=== PATIENT | male | born 1945 | race Caucasian/White ===

== ENCOUNTER 2023-12-22 10:58 | Emergency (ER) | payer MEDICARE, SELFPAY ==
[2023-12-22 11:00] VITALS: BP 153/99; PULSE 73; RESP 18; TEMP 36.4; O2SAT 97
[2023-12-22 11:21] VITALS: BMI 20.7
[2023-12-22] MEDS: Lidocaine Jelly 2% 20 ML Syringe (URO-JET) 1 APPLIC TOPICAL (12:04)
[2023-12-22 12:30] LABS: Bacteria 0 SEEN /hpf (None Seen); Mucous, Urine 0 SEEN /hpf (<or=2+); Red Blood Cells-Urine 0 SEEN /hpf (0-5); Squamous Epithelial Cells - UA 0 SEEN /hpf (0-5); White Blood Cells 0 SEEN /hpf (0-5)
[2023-12-22 12:35] LABS: Color, Urine Yellow (Yellow); Glucose, Dipstick Normal (Normal); Ketone-Dipstick Negative (Negative); Leukocyte Esterase-Dipstick Negative /ul (Negative); Nitrite-Dipstick Negative (Negative); Occult Blood-Urine Negative /ul (Negative); Protein-Dipstick 15 mg/dl (Negative); Urine Bilirubin Dipstick Negative (Negative); Urine Clarity Clear (Clear); Urine Urobilinogen Normal (Normal)
--- NOTE | 2023-12-22 13:38 | EDS_ITS ---
HPI History of Present Illness Chief Complaint: Complaint Informant: patient and spouse/S.O. Narrative Narrative: 78-year-old male presenting with acute urinary retention. He states this has been going on for 3 days, but over the weekend when he could not get a hold of anyone he basically was using an old catheter to straight cath himself, reusing the same catheter over and over it is trying to sterilize it with rubbing alcohol. He states this morning was last time he used to but he did not get that much urine out and he feels like he is still full. He denies any major hematuria although the thinks he had a little after straight cathing once. He has some low back discomfort but no fevers, nausea, vomiting. Other than feeling like he is full no other abdominal pain. He had a TURP long ago and was told that this could not happen anymore. [facility] Medical History AAA (abdominal aortic aneurysm) Home Medications ?Medication ?Instructions ?Recorded ?Last Taken ?Type amlodipine 10 mg tablet 10 mg PO DAILY 12/22/23 Unknown History lisinopril 40 mg tablet 40 mg PO DAILY 12/22/23 Unknown History rosuvastatin 5 mg tablet 5 mg PO DAILY 12/22/23 Unknown History tamsulosin 0.4 mg capsule 0.4 mg PO DAILY 12/22/23 Unknown History Allergy/AdvReac Type Severity Reaction Status Date / Time No Known Allergies Allergy Verified 12/22/23 11:00 Surgical History S/P TURP Social History Smoking Status: Never smoker ROS ROS ED Constitutional Constitutional ED: Denies chills or fever(s) Eyes Eyes: Denies change in vision or diplopia ENT ENT ED: Denies rhinorrhea or sore throat Cardiovascular Cardiovascular: Denies chest pain or palpitations Respiratory/Chest Respiratory/Chest: Denies cough or dyspnea Gastrointestinal Gastrointestinal: Reports abdominal pain; Denies diarrhea, nausea or vomiting Genitourinary Genitourinary ED: Reports as per HPI and difficulty urinating; Denies dysuria or hematuria Musculoskeletal Musculoskeletal: Denies back pain or neck pain Integumentary Denies abscess or rash Neurologic Neurologic: Denies headache(s), paresthesias or weakness Psychiatric Psychiatric: Denies anxiety or suicidal thoughts EXAM Physical Exam Const Vital Signs: 12/22/23 11:00 Temperature 97.5 F L Temperature Source Temporal Pulse Rate 73 Respiratory Rate 18 Blood Pressure 153/99 H Blood Pressure Mean 117 Pulse Ox 97 Oxygen Delivery Method Room Air Positive well nourished and well developed General Appearance ED: well developed and NAD HEENT Reports moist mucous membranes normocephalic and atraumatic Eyes PERRL and EOMs intact bilaterally Neck full ROM and supple Resp normal respiratory effort and clear to auscultation bilaterally Cardio regular rate, regular rhythm and no murmurs GI non-distended GI Narrative: Uncomfortable with suprapubic palpation, no guarding or rebound or other areas of tenderness. Auscultation: normoactive bowel sounds Palpation: soft Back/Spine no CVA tenderness General Back: other FROM Extremity normal to inspection General Extremety ED: Negative for edema, pulses abnormal or tenderness General Extremity: Negative for edema or pulses abnormal Neuro oriented x3, CN's II-XII intact bilaterally and no sensory deficits noted Sensorium / Orientation: awake and alert Motor Exam: strength 5/5 throughout Skin no rashes or lesions noted and no wounds MDM MDM MDM Narrative Medical decision making narrative: We placed a Moon in this patient, 800-900 cc of transparent yellow nonbloody urine came out and he felt much better. Urine was sent for urinalysis it is normal/negative. Given this patient will be discharged home to follow-up with his urologist, he has an appointment 1 week from now, discharged with a leg bag and instructions for use he is comfortable with that plan. Lab Data Attestation: I reviewed the patient's lab results. Labs: Laboratory Results - last 24 hr 12/22/23 12:18 Urine Color Yellow Urine Clarity Clear Urine pH 7.0 Ur Specific [place] 1.010 Urine Protein 15 H Urine Glucose (UA) Normal Urine Ketones Negative Urine Occult Blood Negative Urine Nitrite Negative Urine Bilirubin Negative Urine Urobilinogen Normal Ur Leukocyte Esterase Negative Urine RBC 0 SEEN Urine WBC 0 SEEN Ur Squamous Epith Cells 0 SEEN Urine Bacteria 0 SEEN Urine Mucus 0 SEEN Discharge Plan Triage Chief Complaint: Complaint ED Provider: Landon West Dx/Rx/DC Orders Clinical Impression: Acute urinary retention Instructions: ED Urinary Retention, Male Prescriptions: No Action tamsulosin 0.4 mg capsule 0.4 mg PO DAILY amlodipine 10 mg tablet 10 mg PO DAILY lisinopril 40 mg tablet 40 mg PO DAILY rosuvastatin 5 mg tablet 5 mg PO DAILY Primary Care Provider: Sharmaine Hinojosa Referrals: urologist, your [Other] - Keep Samy appointment Sharmaine Hinojosa MD [Primary Care Provider] - Print Language: Qatari Disposition Disposition: Home, Self Care
== END 2023-12-22 13:54 | disposition home or self-care (01) ==
PROVIDERS: Emergency Provider Emergency Medicine; PCP Family Medicine; Visit Provider Emergency Medicine
DX: R33.9 Retention of urine, unspecified (principal)
CPT/HCPCS: 51702; 81001; 99283